=== PATIENT | male | born 1950 | race Caucasian/White ===

== ENCOUNTER 2019-09-25 12:37 | Outpatient (CLI) | payer MEDICAID, SELFPAY ==
--- NOTE | 2019-09-25 12:43 | XR_ITS ---
WS: [id number] CERVICAL SPINE TECHNIQUE: 3 views of the cervical spine CLINICAL INFORMATION: ANESTHESIA OF SKIN COMPARISON: None. FINDINGS: Straightening of the normal cervical lordosis with slight reversal. Normal C1-2 articulation. Bony fu yasmin with ankylosis C3-C5. Disc space narrowing C5-C6 and C6-C7. Anterior hypertrophic changes. Tanesha l prevertebral soft tissues. XR/XR cervical spine 4-5V [id number] IMPRESSION: 1. Straightening of the normal cervical lordosis with bony ankylosis C3-C5. 2. Disc space narrowing worse at C5-C6 and C6-C7.
== END 2019-09-25 12:38 | disposition home or self-care (01) ==
LOC: RADWPI 12:41
PROVIDERS: Family Provider Nurse Practitioner Family; PCP Nurse Practitioner Family; Visit Provider Nurse Practitioner Family
DX: R20.0 Anesthesia of skin (principal); M43.22 Fusion of spine, cervical region
CPT/HCPCS: 72050

== ENCOUNTER 2019-10-11 07:58 | Outpatient (CLI) | payer MEDICAID, SELFPAY ==
--- NOTE | 2019-10-11 08:08 | ECG_ITS ---
[facility] Test Date: 2019-10-11 Pat Name: Darrin Phillips Department: Room: Gender: Male Addiction Therapist: : 1950 Requested By: Coral Barth Order Number: [id number] Yung MD: Shaji Solis M.D. Interpretive Statements NAME OF STUDY: LEXISCAN SESTAMIBI STRESS TEST INDICATION: Dyspnea, NOTE: Please note that this is the electrocardiogram portion of the Lexiscan/Sestamibi stress test. The perfusion scan will be documented separately. DATA: Baseline heart rate was 62 beats per minute. Baseline blood pressure was 116/60 millimeters of mercury. Target heart rate was 149. Maximum heart rate achieved was 88 which was 59 % of the predicted target heart rate. Maximum blood pressure was 129/65 millimeters of mercury. The reason for ending the test was completion of the protocol. The patient did not experience any symptoms. ELECTROCARDIOGRAM: Baseline: Sinus rhythm, normal axis, old anterior septal CT EXERCISE: After Lexiscan injection, no ST-T changes suggestive of ischemic noted. No arrhythmia noted. CONCLUSION: Please note due to baseline abnormality of the EKG specificity and sensitivity of the EKG portion of LexiScan MIBI stress test will be low 1. EKG not suggestive of ischemia 2. Lexiscan injection unremarkable. 3. Perfusion scan will be documented separately. Electronically Signed On 10-12-2019 19:09:19 CDT by Shaji Solis M.D. [id number]
--- NOTE | 2019-10-11 08:09 | NMCV_ITS ---
NM patricio perf SPECT r/s* [id number] Darrin Phillips Age: 69 Gender: M : 1950 Exam Date: 10/11/2019 09:17 Ordering Phys: Coral Barth FOLDING MACHINE OPERATOR Technologist: DANELLE Cortes Exam Location: [facility] Indications: DYSPNEA STRESS TEST Please see separate stress test report in [facility] for full findings IMAGE PROTOCOL Rest/Stress 1 Lexiscan Day Radiopharmaceutical Dose (mCi) Administration Site Administered by Rest: Tc-99m 10.9 IV DANELLE Gibbons Sestamibi Stress:Tc-99m 32.6 IV DANELLE Cortes Sestamibi Rest: 11-Oct-2019 60 Discovery 630 Stress: 11-Oct-2019 30 Discovery 630 0.4mg Lexiscan. Supine position only as patient was unable to lay prone. SPECT RESULTS Technical Quality: Excellent Raw Data Analysis: Normal Image Corrections: No attenuation or motion correction applied Summed Stress Score: 6 Summed Rest Score: 3 Summed Difference Score: 3 PERFUSION FINDINGS Small sized perfusion abnormality of mild severity of mid inferolateral, apical lateral and apical inferior horton with reversibility in apical lateral and inferior horton on supine stress images. FUNCTIONAL RESULTS (calculated via Gated SPECT) Stress Image LV EF (%): 59 Stress EDV (mL):96 TID: 0.91 Stress ESV (mL):39 FUNCTIONAL FINDINGS: The left ventricle is normal in size. Transient Ischemia Dilatation of 0.91. There is normal left ventricular systolic function. The left ventricular ejection fraction is normal with a value of 59%. There is normal left ventricular wall thickening. Normal end-diastolic and end-systolic volumes. IMPRESSIONS 1. Small sized perfusion abnormality of mild severity of mid inferolateral, apical lateral and apical inferior horton with reversibility in apical lateral and inferior horton. 2. This may be suggestive of old myocardial infarction in left anterior descending/ circumflex artery territory with small area of tarsha-infarct ischemia. 3. Overall left ventricular systolic function is normal without regional wall motion abnormalities. 4. The left ventricular ejection fraction is normal with a value of 59%. 5. No prior similat studies to compare. Maria C Mai MD (Electronically Signed) Final Date: 12 October 2019 16:59 S
[2019-10-11 08:25] VITALS: BMI 26.6
[2019-10-11] MEDS: regadenoson 0.4 Mg/5 ml Syringe IVP (10:04)
[2019-10-11 10:22] VITALS: BP 129/65; PULSE 83
== END 2019-10-11 07:59 | disposition home or self-care (01) ==
PROVIDERS: Family Provider Nurse Practitioner Family; PCP Nurse Practitioner Family; Visit Provider Nurse Practitioner Family
DX: I25.2 Old myocardial infarction (principal); R07.89 Other chest pain; Z95.1 Presence of aortocoronary bypass graft
CPT/HCPCS: 78452; 93017; A9500; J2785

== ENCOUNTER 2021-09-04 08:06 | Emergency (ER) | payer MEDICAID, SELFPAY ==
[2021-09-04 08:40] VITALS: BP 204/88; PULSE 59; RESP 16; TEMP 36.9; O2SAT 98; BMI 26.6
--- NOTE | 2021-09-04 08:49 | CTR_ITS ---
PROCEDURE INFORMATION: Exam: CT Abdomen And Pelvis Without Contrast Exam date and time: 09/04/2021 9:05 AM Age: 71 years old Clinical indication: Abdominal pain; Localized; Right TECHNIQUE: Imaging protocol: Computed tomography of the abdomen and pelvis without contrast. Radiation optimization: All CT scans at this facility use at least one of these dose optimization techniques: automated exposure control; mA and/or kV adjustment per patient size (includes targeted exams where dose is matched to clinical indication); or iterative reconstruction. COMPARISON: CT abdomen pelvis w con* [id number] 11/25/2017 9:41 AM RADIATION DOSE METRICS: Total DLP (mGy-cm): 1543.7 FINDINGS: Liver: There is decreased density of the left lobe of the liver. There is mild prominence of the intrahepatic bile ducts in the left lobe of the liver. The findings could be due to fatty infiltration of the left lobe but an underlying infiltrating a mass is not excluded. One should consider further evaluation with an MR scan of the liver. Gallbladder and bile ducts: Normal gallbladder. Pancreas: Normal. No ductal dilation. Spleen: Tiny benign calcified granulomas are present in the spleen. Adrenal glands: Normal. No mass. Kidneys and ureters: Benign-appearing cysts are present in the kidneys which are similar to old examination. The largest is in the right kidney measuring 4.5 cm in diameter. Small renal vascular calcifications are seen. There is no hydronephrosis or ureteral calculus. Stomach and bowel: There is diverticulosis of the descending and sigmoid colon. There is no evidence of acute diverticulitis. Appendix: The appendix is normal. Intraperitoneal space: Unremarkable. No free air. No significant fluid collection. Vasculature: The abdominal aorta and iliac arteries are calcified. There is no abnormal aneurysm. Lymph nodes: Unremarkable. No enlarged lymph nodes. Urinary bladder: Unremarkable as visualized. Reproductive: Unremarkable as visualized. Bones/joints: Chronic degenerative changes are present in the spine especially at L5-S1. Soft tissues: Unremarkable. CT/CT abdomen pelvis con [id number] IMPRESSION: 1. There is diminished density of the left lobe of the liver which could be due to fatty infiltration. There is however mild prominence of the bile ducts in the left lobe of the liver so that an underlying infiltrating mass is not excluded. Further evaluation with MR scan of the liver is advised. 2. Prominent diverticulosis but no evidence of acute diverticulitis.
--- NOTE | 2021-09-04 08:49 | XRR_ITS ---
PROCEDURE INFORMATION: Exam: XR Chest Exam date and time: 09/04/2021 8:58 AM Age: 71 years old Clinical indication: Cough and dyspnea; Additional info: Dyspnea/cough TECHNIQUE: Imaging protocol: XR of the chest. Views: 1 view. COMPARISON: CR Chest 1 [place] [id number] 11/25/2017 9:01 AM FINDINGS: Lungs: Unremarkable. No consolidation. Pleural spaces: Unremarkable. No pleural effusion. No pneumothorax. Heart/Mediastinum: The heart is not enlarged. The patient has undergone coronary bypass surgery. Bones/joints: Unremarkable. XR/XR chest 1V portable [id number] IMPRESSION: No acute abnormality.
--- NOTE | 2021-09-04 08:49 | ECG_ITS ---
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 Measurements Intervals Hudson Rate: 58 P: 30 WI: 221 QRS: 59 QRSD: 106 T: 55 QT: 416 QTc: 411 Interpretive Statements SINUS BRADYCARDIA WITH FIRST DEGREE AV BLOCK Compared to ECG 11/25/2017 08:46:31 First degree AV block now present Sinus rhythm no longer present Electronically Signed On 09-04-2021 22:33:14 CDT by Aj Barakat M.D. [id number]
--- NOTE | 2021-09-04 08:55 | PC.NURSE ---
urinal provided to pt and informed him of the need for urine specimen
[2021-09-04 08:58] LABS: Basophils % 0.5 %; Eosinophils # 0.2 10^3/uL (0.0-0.8); Eosinophils % 2.9 %; Hematocrit 44.2 % (42.0-52.0); Lymphocytes # 1.7 10^3/uL (0.8-4.8); Mean Corpuscular HGB Conc 33.9 g/dL (30.0-36.0); Mean Corpuscular Hemoglobin 29.1 pg (28.0-34.0); Mean Corpuscular Volume 85.7 fl (80-94); Mean Platelet Volume 9.8 fL (7.4-10.4); Monocytes # 0.7 10^3/uL (0.2-0.9); Monocytes % 8.9 %; Neutrophils # 5.12 10^3/uL (1.8-7.7); Neutrophils % 65.4 %; Nucleated Red Blood Cells % 0 %; Platelet Count 225 10^3/cmm (130-400); Red Blood Count 5.16 10^6/uL (4.1-5.3); Red Cell Distribution Width 13.7 % (12.1-15.1); White Blood Count 7.8 10^3/uL (4.0-10.0)
[2021-09-04 09:18] LABS: Alanine Aminotransferase 30 U/L (0-41); Albumin Level 4.3 g/dL (3.5-5.2); Alkaline Phosphatase 78 IU/L (40-130); Aspartate Amino Transferase 53 U/L (0-40); Blood Urea Nitrogen 15 mg/dL (8-23); Calcium 9.6 mg/dL (8.5-10.5); Carbon Dioxide 25 mmol/L (22-29); Chloride 102 mmol/L (98-107); Globulin 3.1 g/dL (1.3-4.6); Glucose 131 mg/dL (65-115); Lipase 17 U/L (13-60); Osmolality Calculated 293 mOsm/kg (285-295); Sodium 140 mmol/L (136-145); Total Bilirubin 0.6 mg/dL (0.15-1.2); Total Protein 7.4 g/dL (6.6-8.7)
[2021-09-04 09:21] LABS: Anion Gap 16.7 (5-19); Potassium 3.7 mmol/L (3.5-5.1)
--- NOTE | 2021-09-04 09:21 | ED_ITS ---
HPI - Abdominal Pain General: Chief Complaint: Abdominal Pain Stated Complaint: abdominal pain/dizziness Time Seen by Provider: 09/04/21 08:22 Source: patient Mode of arrival: ambulatory Limitations: no limitations History of Present Illness: 71-year-old male comes in complaining of right flank pain for the last 2 months. Patient also reports some dizziness mild chest discomfort on the right side that resolved prior to arrival. No fever sweats or chills denies dysuria urgency or frequency no other abdominal pain. No vomiting or diarrhea. MD elicited complaint: flank pain Pertinent past history: none Onset (ago): month(s) (2) Severity: moderate Quality: aching Radiation: none Exacerbating factors: nothing Relieving factors: nothing Associated Symptoms: Denies anorexia, belching, bloating, change in bowel habits, change in stool character, chills, coffee ground emesis, constipation, GI cramping, diarrhea, dyspepsia, dysuria, excessive flatus, fever(s), heartburn, hematochezia, hematuria, hematemesis, fecal incontinence, loose stools, melena, nausea, poor appetite, syncope and vomiting Review of Systems Const: Denies: fever(s) or chills ENMT: Denies: throat pain, ear or mastoid pain, nasal discharge or nasal congestion Card: Denies: chest pain, palpitations, irregular heart rhythm or syncope Resp: Denies: dyspnea, productive cough or non-productive cough GI: Reports: abdominal pain; Denies: nausea, vomiting, hematemesis, coffee ground emesis, heartburn, diarrhea, constipation, bloating, GI cramping, belching, excessive flatus, fecal incontinence, change in bowel habits, change in stool character, hematochezia or melena : Reports: flank pain; Denies: difficulty urinating, dysuria, urinary frequency, urinary urgency or hematuria Skin/Breast: Denies: rash or pruritus PFSH ED PFSH: Medical History History of PA (myocardial infarction) HTN (hypertension) Hyperlipidemia associated with type 2 diabetes mellitus Surgical History Hx of CABG Family History Mother Diabetes Heart disease Cancer Skin CA Father Heart disease Sister Heart disease Brother Heart disease Social History Smoking and tobacco status: current some day smoker cigarettes and smokeless tobacco Physical Exam Const: COMMON NORMALS: no acute distress GENERAL APPEARANCE: cooperative and comfortable ORIENTATION/CONSCIOUSNESS: Yes awake, Yes oriented to person, Yes oriented to place and Yes oriented to time HENMT: COMMON NORMALS: normocephalic, atraumatic and hearing grossly normal bilaterally HEAD & SCALP: normocephalic and atraumatic Neck/C-Spine: COMMON NORMALS: no JVD Resp: COMMON NORMALS: normal respiratory effort, No retractions, No use of accessory muscles and clear to auscultation bilaterally AUSCULTATION: clear to auscultation bilaterally Cardio: COMMON NORMALS: no JVD, regular rate, regular rhythm and No murmurs present (Cardio) RATE: regular rate RHYTHM: regular rhythm GI: COMMON NORMALS: Soft to palpation and No hepatosplenomegaly present AUSCULTATION: Yes normoactive bowel sounds PALPATION: Yes Soft to palpation, No Tenderness to palpation present (GI), No Guarding due to palpation present (GI) and Yes No hepatosplenomegaly present Extremity: COMMON NORMALS: normal to inspection, capillary refill normal, no clubbing, cyanosis or edema, no calf tenderness and no pedal edema Neuro: SENSORIUM/ORIENTATION: Yes oriented to person, Yes oriented to place and Yes oriented to time Skin: COMMON NORMALS: no rashes or lesions noted GENERAL SKIN EXAM: no rashes or lesions noted Course Vital Signs: Vital signs: Vital Signs Temperature 98.5 F 09/04/21 08:40 Pulse Rate 60 09/04/21 10:36 Respiratory Rate 16 09/04/21 10:36 Blood Pressure 165/86 09/04/21 10:36 Pulse Oximetry 99 09/04/21 10:36 MDM - Abdominal Pain Medical Decision Making Reviewed labs and imaging with the patient. Right-sided abdominal pain is chronic he does have abnormal finding on his liver he should get an outpatient nonemergent further imaging possible MRI refer back to his primary care doctor. No emergent condition present at this time Medical Records I reviewed the patient's medical records. Lab Data I reviewed the patient's lab results. : 09/04/21 08:51 09/04/21 08:51 Labs/Radiology: Radiology Impressions Abdomen/Pelvis CT 09/04/21 08:49 IMPRESSION: 1. There is diminished density of the left lobe of the liver which could be due to fatty infiltration. There is however mild prominence of the bile ducts in the left lobe of the liver so that an underlying infiltrating mass is not excluded. Further evaluation with MR scan of the liver is advised. 2. Prominent diverticulosis but no evidence of acute diverticulitis. Chest X-Ray 09/04/21 08:49 IMPRESSION: No acute abnormality. Laboratory Results WBC 7.8 10^3/uL (4.0-10.0) 09/04/21 08:51 RBC 5.16 10^6/uL (4.1-5.3) 09/04/21 08:51 Hgb 15.0 g/dL (11.7-16.6) 09/04/21 08:51 Hct 44.2 % (42.0-52.0) 09/04/21 08:51 MCV 85.7 fl (80-94) 09/04/21 08:51 MCH 29.1 pg (28.0-34.0) 09/04/21 08:51 MCHC 33.9 g/dL (30.0-36.0) 09/04/21 08:51 RDW 13.7 % (12.1-15.1) 09/04/21 08:51 Plt Count 225 10^3/cmm (130-400) 09/04/21 08:51 MPV 9.8 fL (7.4-10.4) 09/04/21 08:51 Neut % (Auto) 65.4 % 09/04/21 08:51 Lymph % (Auto) 22.0 % 09/04/21 08:51 Towner % (Auto) 8.9 % 09/04/21 08:51 Eos % (Auto) 2.9 % 09/04/21 08:51 Baso % (Auto) 0.5 % 09/04/21 08:51 Neut # (Auto) 5.12 10^3/uL (1.8-7.7) 09/04/21 08:51 Lymph # (Auto) 1.7 10^3/uL (0.8-4.8) 09/04/21 08:51 Towner # (Auto) 0.7 10^3/uL (0.2-0.9) 09/04/21 08:51 Eos # (Auto) 0.2 10^3/uL (0.0-0.8) 09/04/21 08:51 Baso # (Auto) 0.0 10^3/uL (0.0-0.1) 09/04/21 08:51 Nucleated RBC % (auto) 0 % 09/04/21 08:51 Nucleated RBCs # 0.0 /100WBC 09/04/21 08:51 Sodium 140 mmol/L (136-145) 09/04/21 08:51 Potassium 3.7 mmol/L (3.5-5.1) 09/04/21 08:51 Chloride 102 mmol/L (98-107) 09/04/21 08:51 Carbon Dioxide 25 mmol/L (22-29) 09/04/21 08:51 Anion Gap 16.7 (5-19) 09/04/21 08:51 BUN 15 mg/dL (8-23) 09/04/21 08:51 Creatinine 0.7 mg/dL (0.7-1.2) 09/04/21 08:51 GFR Calculation Not Reportable 09/04/21 08:51 Glucose 131 mg/dL (65-115) H 09/04/21 08:51 Calculated Osmolality 293 mOsm/kg (285-295) 09/04/21 08:51 Calcium 9.6 mg/dL (8.5-10.5) 09/04/21 08:51 Total Bilirubin 0.6 mg/dL (0.15-1.2) 09/04/21 08:51 AST 53 U/L (0-40) H 09/04/21 08:51 ALT 30 U/L (0-41) 09/04/21 08:51 Alkaline Phosphatase 78 IU/L (40-130) 09/04/21 08:51 Total Protein 7.4 g/dL (6.6-8.7) 09/04/21 08:51 Albumin 4.3 g/dL (3.5-5.2) 09/04/21 08:51 Globulin 3.1 g/dL (1.3-4.6) 09/04/21 08:51 Lipase 17 U/L (13-60) 09/04/21 08:51 Urine Color Yellow (Yellow) 09/04/21 09:31 Urine Appearance Clear (CLEAR) 09/04/21 09:31 Urine pH 7 (5-7) 09/04/21 09:31 Ur Specific Coleman 1.010 (1.005-1.030) 09/04/21 09:31 Urine Protein Neg (Negative) 09/04/21 09:31 Urine Glucose (UA) Norm (Normal) 09/04/21 09:31 Urine Ketones Negative (Negative) 09/04/21 09:31 Urine Blood Trace (Negative) H 09/04/21 09:31 Urine Nitrate Negative (Negative) 09/04/21 09:31 Urine Bilirubin Neg (Negative) 09/04/21 09:31 Urine Urobilinogen 8 mg/dL (Negative) H 09/04/21 09:31 Ur Leukocyte Esterase Negative (Negative) 09/04/21 09:31 Urine RBC 0-4 /hpf (0-2) H 09/04/21 09:31 Urine WBC 0-4 /hpf (0-5) H 09/04/21 09:31 Ur Squamous Epith Cells Rare /hpf (0-5) 09/04/21 09:31 Amorphous Sediment Not Reportable 09/04/21 09:31 Urine Bacteria Trace /hpf (NONE) 09/04/21 09:31 Urine Mucus Trace /hpf 09/04/21 09:31 Discharge Plan Discharge Patient Disposition: Home Clinical Impression: Right sided abdominal pain Condition: Stable Prescriptions: No Action aspirin 325 mg tablet 325 mg PO DAILY 0RF baclofen 10 mg tablet 10 mg PO TID 0RF duloxetine 60 mg capsule,delayed release(DR/EC) 60 mg PO DAILY 0RF fenofibrate nanocrystallized 145 mg tablet 145 mg PO DAILY 0RF gabapentin 600 mg tablet 600 mg PO TID 0RF ibuprofen 800 mg tablet 800 mg PO TID PRN0RF metoprolol tartrate 25 mg tablet 25 mg PO BID 0RF nitroglycerin [Nitrostat] 0.4 mg tablet, sublingual 0.4 mg SUBLINGUAL Q5M PRN0RF Rx Instructions: do not exceed 3 doses per episode omeprazole 40 mg capsule,delayed release(DR/EC) 40 mg PO DAILY 0RF albuterol sulfate [ProAir HFA] 90 mcg/actuation HFA aerosol inhaler 2 puff INHALATION Q6H PRN0RF simvastatin 40 mg tablet 40 mg PO DAILY 0RF sucralfate 1 gram tablet 1 gm PO QID 0RF tramadol 50 mg tablet 50 mg PO BID PRN0RF ramipril 5 mg capsule 5 mg PO BID Qty: 180 3RF Discharge Orders: Discharge ED (Routine); Ordered 09/04/21 Ordered By: Patrice Tovar Referrals: Barth,Coral, SOLUTION SPECIALIST [Primary Care Provider] - Activity Restrictions/Additional Instructions: Follow-up with your primary care physician for further evaluation. Coding Level of Care Code ED Heavy Machinery Assembler for Chg Fwd Exam Comprehensive
[2021-09-04 09:28] VITALS: BP 164/84; PULSE 59; RESP 16; O2SAT 98
[2021-09-04 10:02] LABS: Add Urine Microscopic? YES; Bilirubin Urine Neg (Negative); Blood Urine Trace (Negative); Glucose Urine UA Norm (Normal); Ketones Urine Negative (Negative); Leukocyte Esterase Urine Negative (Negative); Nitrate Urine Negative (Negative); Protein Urine Neg (Negative); Urine Appearance Clear (CLEAR); Urine Color Yellow (Yellow); Urobilinogen Urine 8 mg/dL (Negative); pH Urine 7 (5-7)
[2021-09-04 10:03] LABS: Add Urine Culture? No; Bacteria Urine TRACE /hpf; Mucus Urine TRACE /hpf; RBC Urine 0-4 /hpf (0-2); Squamous Epithelial Cell Urine RARE /hpf (0-5); WBC Urine 0-4 /hpf (0-5)
[2021-09-04 10:36] VITALS: BP 165/86; PULSE 60; RESP 16; O2SAT 99
== END 2021-09-04 10:40 | disposition home or self-care (01) ==
PROVIDERS: Physician Assistant; Emergency Provider Family Medicine; PCP Nurse Practitioner Family
DX: R10.9 Unspecified abdominal pain (principal); I25.2 Old myocardial infarction; I10 Essential (primary) hypertension
CPT/HCPCS: 71045; 74176; 80053; 81001; 83690; 85025; 93005; 99284